=== PATIENT | male | born 1990 | race Caucasian/White ===

== ENCOUNTER 2020-10-17 19:03 | Emergency (ER) | payer BC ==
[~2020-10-17] VITALS: Ht 180.3 cm; Wt 90.7 kg
[~2020-10-17 19:03] MED LIST: HYDPAM50 PO; OXYACE5T PO
[2020-10-17 19:48] LABS: BASOPHILS ABSOLUTE AUTO 0.06 K/mm3 (0.00-0.23); BASOPHILS PERCENT AUTO 1 % (0-2); EOSINOPHILS PERCENT AUTO 5 % (0-6); Hematocrit 43.6 % (37.0-53.0); Hemoglobin 15.6 g/dL (13.5-17.5); IMMATURE GRAN ABSOLUTE AUTO 0.02 K/mm3 (0.00-0.10); IMMATURE GRAN PERCENT AUTO 0 % (0-1); LYMPHOCYTES ABSOLUTE AUTO 2.49 K/mm3 (0.84-5.20); LYMPHOCYTES PERCENT AUTO 30 % (21-46); MONOCYTES ABSOLUTE AUTO 0.63 K/mm3 (0.16-1.47); MONOCYTES PERCENT AUTO 8 % (4-13); Mean Corpuscular HGB 30.4 pg (26.0-34.0); Mean Corpuscular HGB Conc 35.8 g/dL (31.5-36.5); Mean Corpuscular Volume 85 fL (80-100); Mean Platelet Volume 9.8 fL (9.1-12.4); NEUTROPHILS ABSOLUTE AUTO 4.84 K/mm3 (1.96-9.15); NEUTROPHILS PERCENT AUTO 57 % (41-73); Platelet Count 248 K/mm3 (150-400); RDW Coefficient Variation 12.2 % (11.7-14.2); RDW Standard Deviation 37.8 fL (35.1-46.3); Red Blood Cell Count 5.14 M/mm3 (4.30-5.90); White Blood Cell Count 8.44 K/mm3 (4.00-11.30)
[2020-10-17 20:06] LABS: Alanine Aminotransfer (ALT/SGP 25 U/L (12-78); Albumin, Blood 4.2 g/dL (3.4-5.0); Albumin/Globulin Ratio 1.3 (0.8-1.8); Alk Phos 60 U/L (50-136); Anion Gap 3 mmol/L (6-16); Aspartate Aminotrans (AST/SGOT 19 U/L (12-37); Bilirubin, Total 0.6 mg/dL (0.1-1.0); Blood Urea Nitrogen 15 mg/dL (8-24); CO2, Blood 30 mmol/L (21-32); Calcium, Blood 9.1 mg/dL (8.5-10.1); Chloride, Blood 110 mmol/L (98-108); Creatinine, Blood 1.07 mg/dL (0.60-1.20); Globulin, Blood 3.2 g/dL (2.2-4.0); Glomerular Filtration Rate >60 (60-); Glucose, Blood 101 mg/dL (70-99); Potassium, Blood 3.8 mmol/L (3.5-5.5); Sodium, Blood 143 mmol/L (136-145); Total Protein, Blood 7.4 g/dL (6.4-8.2)
[2020-10-17] MEDS ORDERED: Norco 5-325 Ta1 EACH PO (23:44)
[2020-10-17] MEDS ORDERED: ONDA4ODT MM (23:44)
[2020-10-17] MEDS ORDERED: Protonix40 MG PO (23:44)
== END 2020-10-18 00:37 | disposition home or self-care (01) ==
LOC: ER 19:03
PROVIDERS: Physician Assistant
DX: K80.20 Calculus of gallbladder without cholecystitis without obstruction (principal)
CPT/HCPCS: 36415; 76705; 80053; 83690; 85025; 96374; 99284-25; A9270; J2405

== ENCOUNTER 2021-01-30 17:39 | Emergency (ER) | payer BC ==
[~2021-01-30] VITALS: Ht 180.3 cm; Wt 90.7 kg
[~2021-01-30 17:39] MED LIST changes: +Norco 5-325 Ta1 EACH PO; +ONDA4ODT MM; +Protonix40 MG PO
== END 2021-01-30 19:38 | disposition home or self-care (01) ==
LOC: ER 17:39
DX: S93.401A Sprain of unspecified ligament of right ankle, initial encounter (principal); F17.210 Nicotine dependence, cigarettes, uncomplicated; W17.2XXA Fall into hole, initial encounter
CPT/HCPCS: 73610; 96372-59; 99283-25; J1885

== ENCOUNTER 2021-06-09 02:02 | Emergency (ER) | payer BC ==
[~2021-06-09] VITALS: Ht 180.3 cm; Wt 81.7 kg
[2021-06-09] MEDS ORDERED: AMOCLA875 PO (02:47)
== END 2021-06-09 02:53 | disposition home or self-care (01) ==
LOC: ER 02:02
DX: K04.7 Periapical abscess without sinus (principal)
CPT/HCPCS: 99282; A9270

== ENCOUNTER 2021-08-05 10:07 | Day surgery (SDC) | payer BC ==
[~2021-08-05] VITALS: Ht 180.3 cm; Wt 85.9 kg
[~2021-08-05 10:07] MED LIST changes: +AMOCLA875 PO
== END 2021-08-05 15:17 | disposition home or self-care (01) ==
LOC: ORSCSDS 10:07
PROVIDERS: Podiatrist Foot & Ankle Surgery
PROC: 0SGF04Z Fusion of Right Ankle Joint with Internal Fixation Device, Open Approach (ICD-10-PCS; principal; 2021-08-05 11:30)
PROC: 0SBF4ZZ Excision of Right Ankle Joint, Percutaneous Endoscopic Approach (ICD-10-PCS; principal; 2021-08-05 11:30)
DX: M25.371 Other instability, right ankle (principal); M67.271 Synovial hypertrophy, not elsewhere classified, right ankle and foot; Z87.891 Personal history of nicotine dependence
CPT/HCPCS: A9270; C1713; J0171; J0690; J1100; J1885; J2250; J2405; J2704; J3010

== ENCOUNTER 2022-06-22 08:41 | Day surgery (SDC) | payer BC ==
[~2022-06-22] VITALS: Ht 180.3 cm; Wt 94.3 kg
--- NOTE | 2022-06-22 10:34 | NUR ---
PRIOR TO SURGERY History, Chart, Medications and Allergies reviewed before start of procedure.Pre-Op teaching done. Pt verbalizes understanding. AT BEDSIDE
--- NOTE | 2022-06-22 12:17 | NUR ---
REPORT FROM PACU NURSE BRANDI DAVIS RN. PT DID NOT RECEIVE PAIN MEDICATION IN PACU, REPORTED MODERATE PAIN IMMEDIATELY IN STEP DOWN UNIT. PT REPORTED NAUSEA WELL 5/10. ICE PACK ADMINISTERED TO INCISION SITES AND MEDICATION ORDERED ADMINISTERED. PT HAS FOUR INCISION SITES ON ABDOMEN ALL COVERED IN STERI STRIPS WITH SCANT AMOUNT OF SEROSANGUINEOUS FLUID. PT RESTING COMFORATBLY IN BED NOW, AT BEDSIDE.
--- NOTE | 2022-06-22 12:54 | NUR ---
Discharge instructions reviewed with patient. Patient verbalizes understanding. Copy given to patient to take home. Dressing to procedure site clean, dry, intact with no visible drainage, swelling, erythema or bruising noted. Patient States Post-Procedure ride home has been arranged. Discharged via wheelchair to private car for ride home. ALL BELONGINGS RETURNED TO PATIENT.
== END 2022-06-22 22:39 | disposition home or self-care (01) ==
LOC: ORSCMMR 08:41 → ORD 10:00 → ORSCMMR 10:00
PROVIDERS: Surgery
PROC: 0FT44ZZ Resection of Gallbladder, Percutaneous Endoscopic Approach (ICD-10-PCS; principal; 2022-06-22 10:00)
PROC: BF532Z0 Other Imaging of Gallbladder and Bile Ducts using Fluorescing Agent, Intraoperative (ICD-10-PCS; principal; 2022-06-22 10:00)
DX: K80.10 Calculus of gallbladder with chronic cholecystitis without obstruction (principal); F17.210 Nicotine dependence, cigarettes, uncomplicated; K21.9 Gastro-esophageal reflux disease without esophagitis; F43.10 Post-traumatic stress disorder, unspecified
CPT/HCPCS: 74300; 88304; A9270; C1729; J0690; J1100; J1885; J2250; J2405; J2704; J2710; J2765; J2795; J3010; J7120